=== PATIENT | male | born 1960 | race African-American/Black ===

== ENCOUNTER → 2021-07-27 | Day surgery (SDC) | payer OTHER ==
[~2021-07-27] VITALS: Ht 172.7 cm; Wt 114.0 kg
[~2021-07-27] MED LIST: AMLO-187 PO; ASPI325T8 PO; IRBE300T23 PO; IV RINGERS,LACTATED 1000ML 1,000 ML IV SCH; OXYB10TA26 PO; PROPOFOL 10 MG/ML (20ML) VIAL. IV ONE; TAMS0.4C97 PO
[2021-07-27 12:08] VITALS: BP 158/90
--- NOTE | 2021-07-27 13:38 | PDOC4 ---
PROCEDURE Procedure Colonoscopy Indication: Screening, family history of colon cancer. Meds: per anesthesia Findings: AISHA normal. --'Scope advanced to cecum. Prep adequate for polyps >6mm. Mucosa normal. No diverticula, polyps, etc. seen. IH's on retroflex. Jorge. well. IMP: IH's REC: Repeat colonoscopy in 5 years, perhaps with more vigorous prep. Resume meds, diet. F/u with me prn. ALFREDO PULIDO MD Jul 27, 2021 13:38
[2021-07-27 14:10] VITALS: BP 159/94
== END | disposition home or self-care (01) ==
LOC: ENDOS 11:30
PROVIDERS: ATTEND Internal Medicine Gastroenterology
DX: Z12.11 Encounter for screening for malignant neoplasm of colon (principal); K64.0 First degree hemorrhoids; K63.89 Other specified diseases of intestine; I10 Essential (primary) hypertension; K21.9 Gastro-esophageal reflux disease without esophagitis; N40.0 Benign prostatic hyperplasia without lower urinary tract symptoms; E66.3 Overweight; Z86.73 Personal history of transient ischemic attack (TIA), and cerebral infarction without residual deficits; Z80.0 Family history of malignant neoplasm of digestive organs; Z79.899 Other long term (current) drug therapy; Z79.82 Long term (current) use of aspirin; Z98.890 Other specified postprocedural states; Z88.0 Allergy status to penicillin
CPT/HCPCS: 45378; J2704